=== PATIENT | female | born 1995 | race Caucasian/White ===

== ENCOUNTER 2021-02-27 12:18 | Inpatient (IN) | payer OTHER ==
[~2021-02-27] VITALS: Ht 170.2 cm; Wt 74.4 kg
[2021-02-27 13:41] LABS: BILIRUBIN NEGATIVE (NEGATIVE); BLOOD NEGATIVE Ery/uL (NEGATIVE); CLARITY CLEAR (CLEAR); COLOR YELLOW (YELLOW); GLUCOSE (U) NORMAL (NORMAL); LEUKOCYTES TRACE Leu/uL (NEGATIVE); NITRITE NEGATIVE (NEGATIVE); PROTEIN NEGATIVE (NEGATIVE); UROBILINOGEN 0.2 mg/dL (0.2-1.0)
[2021-02-27 13:45] LABS: HCT 33.7 % (37.0-47.0); HGB 10.9 g/dl (12.5-16.0); MCH 26.8 pg (25.0-31.0); MCHC 32.3 g/dL (32.0-36.0); MPV 10.7 fL (6.0-9.5); RBC 4.06 M/uL (4.20-5.40); RDW 16.2 % (11.5-14.0); WBC 11.9 K/uL (4.0-10.5)
[2021-02-27 13:48] LABS: BACTERIA TRACE; URINARY WBC RARE
[2021-02-27 13:50] LABS: AMPHETAMINES NEGATIVE (NEGATIVE); BARBITURATES NEGATIVE (NEGATIVE); ECSTASY (MDMA) NEGATIVE (NEGATIVE); MARIJUANA (THC) NEGATIVE (NEGATIVE); METHADONE NEGATIVE (NEGATIVE); OPIATES NEGATIVE (NEGATIVE)
[2021-02-27 13:51] LABS: OXYCODONE NEGATIVE (NEGATIVE)
[2021-02-27 15:08] LABS: URIC ACID 3.8 mg/dL (2.6-6.2)
[2021-02-27 15:08] LABS: ALBUMIN 2.3 g/dL (3.4-5.0); BILIRUBIN - TOTAL 0.2 mg/dL (0.2-1.0); CREATININE 0.5 mg/dL (0.51-0.95); GLOBULIN (CALCULATION) 3.8 g/dL; POTASSIUM 3.3 mmol/L (3.5-5.1); TOTAL PROTEIN 6.1 g/dL (6.4-8.2)
[2021-02-27 15:37] LABS: PROTEIN:CREATININE 0.23 RATIO; URINE CREATININE 50.27 mg/dL (29.00-226.00); URINE TOTAL PROTEIN-RANDOM 11.7 mg/dL (<11.9)
[2021-03-01 06:16] LABS: HCT 27.1 % (37.0-47.0); HGB 8.6 g/dl (12.5-16.0); MCH 26.4 pg (25.0-31.0); MCHC 31.7 g/dL (32.0-36.0); MCV 83.1 fL (78.0-100.0); MPV 10.8 fL (6.0-9.5); RBC 3.26 M/uL (4.20-5.40); RDW 15.9 % (11.5-14.0)
[2021-03-01 06:21] LABS: WBC 22.8 K/uL (4.0-10.5)
[2021-03-01 06:29] LABS: INR 1.09 (0.9-1.2); PROTHROMBIN TIME 13.5 SECONDS (11.8-13.4); PTT 26.6 SECONDS (24.4-34.7)
[2021-03-02 05:52] LABS: BASOPHIL 0.2 % (0-2); EOSINOPHIL 0.8 % (0-5); HCT 18.5 % (37.0-47.0); LYMPHOCYTE 12.7 % (15-48); MCH 26.6 pg (25.0-31.0); MCHC 31.4 g/dL (32.0-36.0); MCV 84.9 fL (78.0-100.0); MONOCYTE 6.4 % (0-12); MPV 10.6 fL (6.0-9.5); NEUTROPHIL 79.1 % (41-80); NRBC 0; PLT 112 K/uL (150-400); RBC 2.18 M/uL (4.20-5.40); RDW 16.7 % (11.5-14.0); WBC 14.1 K/uL (4.0-10.5)
[2021-03-02 05:56] LABS: HGB 5.8 g/dl (12.5-16.0)
[2021-03-02 17:11] LABS: BASOPHIL 0.4 % (0-2); EOSINOPHIL 1.3 % (0-5); HCT 29.1 % (37.0-47.0); LYMPHOCYTE 12.4 % (15-48); MCH 27.4 pg (25.0-31.0); MCV 85.8 fL (78.0-100.0); MONOCYTE 5.6 % (0-12); MPV 10.4 fL (6.0-9.5); NEUTROPHIL 79.1 % (41-80); NRBC 0; PLT 139 K/uL (150-400); RBC 3.39 M/uL (4.20-5.40); RDW 15.9 % (11.5-14.0); WBC 15.4 K/uL (4.0-10.5)
[2021-03-02 17:12] LABS: HGB 9.3 g/dl (12.5-16.0)
[2021-03-03 06:00] LABS: BASOPHIL 0.7 % (0-2); EOSINOPHIL 2.5 % (0-5); HCT 28.6 % (37.0-47.0); HGB 9.1 g/dl (12.5-16.0); LYMPHOCYTE 17.6 % (15-48); MCH 27.4 pg (25.0-31.0); MCHC 31.8 g/dL (32.0-36.0); MCV 86.1 fL (78.0-100.0); MONOCYTE 5.4 % (0-12); MPV 10.2 fL (6.0-9.5); NRBC 0; PLT 143 K/uL (150-400); RBC 3.32 M/uL (4.20-5.40); RDW 15.9 % (11.5-14.0); WBC 13.7 K/uL (4.0-10.5)
== END 2021-03-03 13:50 | disposition home or self-care (01) | DRG 806 ==
LOC: FOD 12:18 → FSDC 12:19 → FOB 12:25 → FOD 13:03 → FOB 13:04
PROVIDERS: ADMIT Obstetrics & Gynecology
PROC: 10D07Z6 Extraction of Products of Conception, Vacuum, Via Natural or Artificial Opening (ICD-10-PCS; principal; 2021-02-28)
PROC: 0KQM0ZZ Repair Perineum Muscle, Open Approach (ICD-10-PCS; 2021-02-28)
PROC: 10907ZC Drainage of Amniotic Fluid, Therapeutic from Products of Conception, Via Natural or Artificial Opening (ICD-10-PCS; 2021-02-28)
PROC: 3E0P7VZ Introduction of Hormone into Female Reproductive, Via Natural or Artificial Opening (ICD-10-PCS; 2021-02-28)
PROC: 10H07YZ Insertion of Other Device into Products of Conception, Via Natural or Artificial Opening (ICD-10-PCS; 2021-02-28)
PROC: 30233N1 Transfusion of Nonautologous Red Blood Cells into Peripheral Vein, Percutaneous Approach (ICD-10-PCS; 2021-03-02)
DX: O76 Abnormality in fetal heart rate and rhythm complicating labor and delivery (principal); O72.1 Other immediate postpartum hemorrhage; Z37.0 Single live birth; D62 Acute posthemorrhagic anemia; O86.12 Endometritis following delivery; O13.4 Gestational [pregnancy-induced] hypertension without significant proteinuria, complicating childbirth; Z68.37 Body mass index [BMI] 37.0-37.9, adult; O99.02 Anemia complicating childbirth; O70.1 Second degree perineal laceration during delivery; Z20.822 Contact with and (suspected) exposure to COVID-19; O99.62 Diseases of the digestive system complicating childbirth; K21.9 Gastro-esophageal reflux disease without esophagitis; O99.344 Other mental disorders complicating childbirth; F41.9 Anxiety disorder, unspecified; F32.9 Major depressive disorder, single episode, unspecified; Z88.8 Allergy status to other drugs, medicaments and biological substances
CPT/HCPCS: 36415; 36430; 80053; 80305; 81001; 81003; 82570; 83605; 83615; 84156; 84550; 85025; 85384; 85610; 85730; 86850; 86900; 86901; 86922; 87040; J0595; J2405; J2543; J2704; J2916; J7120; P9016; U0002